=== PATIENT | female | born 1960 | race Caucasian/White ===

== ENCOUNTER → 2016-07-21 17:37 | Outpatient (CLI) | payer MEDICARE ==
[2012-02-24 09:55] VITALS: BMI 22.3
== END | disposition home or self-care (01) ==
LOC: D.MAMMO 16:15
DX: Z12.31 Encounter for screening mammogram for malignant neoplasm of breast (principal)

== ENCOUNTER 2017-06-26 07:57 | Inpatient (IN) | payer MEDICARE ==
[~2017-06-26] VITALS: Ht 165.1 cm; Wt 64.4 kg
[2017-06-26 08:31] LABS: BASOPHILS 0.1 % (0-2); EOSINOPHILS 0.4 % (0-7); HEMATOCRIT 36.4 % (36.0-48.0); HEMOGLOBIN 11.8 g/dL (12-16); LYMPHOCYTES 9.2 % (15-50); MCH 28.5 pg (26.0-34.0); MCHC 32.4 g/dL (31.0-37.0); MCV 87.9 fL (80.0-100.0); MEAN PLATELET VOLUME 9.9 fL (7.4-10.4); MONOCYTES 5.9 % (2-11); NEUTROPHILS 83.4 % (40-80); PLATELET COUNT 329 10x3/uL (130-400); RBC 4.14 10x6/uL (4.00-5.40); RDW 14.4 % (11.5-14.5); WBC 13.5 10x3/uL (4.8-10.8)
[2017-06-26 08:44] LABS: ALBUMIN 2.7 g/dL (3.4-5.0); ALKALINE PHOSPHATASE 73 U/L (46-116); ALT (SGPT) 40 U/L (10-68); BILIRUBIN - TOTAL 0.45 mg/dL (0.2-1.3); CALC OSMOLALITY 274 mosm/kg (275-300); CALCIUM 9.1 mg/dL (8.5-10.1); CARBON DIOXIDE 26.8 mmol/L (21.0-32.0); CHLORIDE - SERUM 100 mmol/L (98-107); CREATININE - SERUM 1.1 mg/dL (0.6-1.3); GLUCOSE 124 mg/dL (74-106); POTASSIUM - SERUM 3.5 mmol/L (3.5-5.1); SODIUM 137 mmol/L (136-145); UREA NITROGEN 13 mg/dL (7-18); eGFR NON AFRICAN AMERICAN 54 mL/min (90-120)
[2017-06-26 08:48] LABS: TROPONIN-I < 0.017 ng/mL (0.000-0.060)
[2017-06-26 15:40] VITALS: BP 128/62; BMI 21.0
[2017-06-26] MEDS ORDERED: ALENDRONATE SOD70 MG PO (15:40)
[2017-06-26 21:53] VITALS: BP 109/62
[2017-06-27 05:24] LABS: BASOPHILS 0.1 % (0-2); EOSINOPHILS 0 % (0-7); HEMATOCRIT 32.5 % (36.0-48.0); HEMOGLOBIN 10.6 g/dL (12-16); IMMATURE GRANULOCYTES 0.8 % (0-5); LYMPHOCYTES 7.6 % (15-50); MCH 28.2 pg (26.0-34.0); MCHC 32.6 g/dL (31.0-37.0); MCV 86.4 fL (80.0-100.0); MEAN PLATELET VOLUME 9.6 fL (7.4-10.4); MONOCYTES 1.6 % (2-11); NEUTROPHILS 89.9 % (40-80); PLATELET COUNT 343 10x3/uL (130-400); RBC 3.76 10x6/uL (4.00-5.40); RDW 14.4 % (11.5-14.5); WBC 13.5 10x3/uL (4.8-10.8)
[2017-06-27 05:40] VITALS: BP 115/68
[2017-06-27 05:47] LABS: ALBUMIN 2.1 g/dL (3.4-5.0); ALKALINE PHOSPHATASE 67 U/L (46-116); ALT (SGPT) 42 U/L (10-68); CALC OSMOLALITY 285 mosm/kg (275-300); CALCIUM 8.2 mg/dL (8.5-10.1); CARBON DIOXIDE 24.2 mmol/L (21.0-32.0); CHLORIDE - SERUM 106 mmol/L (98-107); GLUCOSE 167 mg/dL (74-106); POTASSIUM - SERUM 3.7 mmol/L (3.5-5.1); SODIUM 141 mmol/L (136-145); UREA NITROGEN 14 mg/dL (7-18); eGFR NON AFRICAN AMERICAN 78 mL/min (90-120)
[2017-06-27 05:54] LABS: CREATININE - SERUM 0.8 mg/dL (0.6-1.3)
[2017-06-27 08:57] VITALS: BP 115/64
[2017-06-27 09:50] LABS: APPEARANCE HAZY (CLEAR); BILIRUBIN NEGATIVE (NEGATIVE); COLOR YELLOW (YELLOW); GLUCOSE NEGATIVE (NEGATIVE); KETONE SMALL mg/dL (NEGATIVE); NITRITE NEGATIVE (NEGATIVE); PROTEIN 1+ mg/dL (NEGATIVE); SPECIFIC GRAVITY 1.025 (1.005-1.020); UROBILINOGEN NORMAL (NORMAL)
[2017-06-27 09:59] LABS: BACTERIA MANY /hpf (NONE SEEN); RED CELLS - URINE 0-5 /hpf (0-5)
[2017-06-27 10:00] LABS: GRANULAR CAST 0-5 /lpf (NONE SEEN); HYALINE CAST OCC /lpf (NONE SEEN); MUCUS <1+ /lpf (NONE SEEN)
[2017-06-27 10:35] VITALS: BMI 22.6
[2017-06-27 11:29] VITALS: Ht 165.1 cm; Wt 64.4 kg
[2017-06-27 11:42] VITALS: BP 105/55
[2017-06-27 15:53] VITALS: BP 131/68
[2017-06-27 20:26] VITALS: BP 143/76
[2017-06-28 05:02] LABS: BASOPHILS 0.1 % (0-2); EOSINOPHILS 0 % (0-7); HEMATOCRIT 30.5 % (36.0-48.0); HEMOGLOBIN 10.1 g/dL (12-16); LYMPHOCYTES 7.5 % (15-50); MCH 28.4 pg (26.0-34.0); MCHC 33.1 g/dL (31.0-37.0); MCV 85.7 fL (80.0-100.0); MEAN PLATELET VOLUME 9.5 fL (7.4-10.4); MONOCYTES 2.1 % (2-11); NEUTROPHILS 89.3 % (40-80); PLATELET COUNT 400 10x3/uL (130-400); RBC 3.56 10x6/uL (4.00-5.40); RDW 14.7 % (11.5-14.5); WBC 20.5 10x3/uL (4.8-10.8)
[2017-06-28 05:19] LABS: CALC OSMOLALITY 287 mosm/kg (275-300); CALCIUM 7.8 mg/dL (8.5-10.1); CARBON DIOXIDE 23.2 mmol/L (21.0-32.0); CHLORIDE - SERUM 109 mmol/L (98-107); CREATININE - SERUM 0.7 mg/dL (0.6-1.3); GLUCOSE 169 mg/dL (74-106); POTASSIUM - SERUM 4.1 mmol/L (3.5-5.1); SODIUM 142 mmol/L (136-145); UREA NITROGEN 16 mg/dL (7-18); eGFR NON AFRICAN AMERICAN > 90 mL/min (90-120)
[2017-06-28 06:23] VITALS: BP 128/66
[2017-06-28 07:00] VITALS: BP 128/72
[2017-06-28 20:00] VITALS: BP 119/59
[2017-06-29 06:02] LABS: BASOPHILS 0.1 % (0-2); EOSINOPHILS 0 % (0-7); HEMOGLOBIN 10.3 g/dL (12-16); IMMATURE GRANULOCYTES 1.1 % (0-5); LYMPHOCYTES 7.7 % (15-50); MCH 27.8 pg (26.0-34.0); MCHC 32.2 g/dL (31.0-37.0); MCV 86.5 fL (80.0-100.0); MEAN PLATELET VOLUME 9.7 fL (7.4-10.4); MONOCYTES 2.5 % (2-11); NEUTROPHILS 88.6 % (40-80); PLATELET COUNT 462 10x3/uL (130-400); RDW 15.1 % (11.5-14.5); WBC 15.8 10x3/uL (4.8-10.8)
[2017-06-29 06:03] LABS: CALC OSMOLALITY 289 mosm/kg (275-300); CALCIUM 7.5 mg/dL (8.5-10.1); CARBON DIOXIDE 23.4 mmol/L (21.0-32.0); CHLORIDE - SERUM 109 mmol/L (98-107); CREATININE - SERUM 0.8 mg/dL (0.6-1.3); GLUCOSE 153 mg/dL (74-106); POTASSIUM - SERUM 3.8 mmol/L (3.5-5.1); SODIUM 143 mmol/L (136-145); UREA NITROGEN 17 mg/dL (7-18); eGFR NON AFRICAN AMERICAN 78 mL/min (90-120)
[2017-06-29 08:57] VITALS: BP 125/63
[2017-06-29] MEDS ORDERED: FLORAJEN3 CAPS460 MG PO (11:53)
[2017-06-29] MEDS ORDERED: LEVAQUIN750 MG PO (11:53)
[2017-06-29] MEDS ORDERED: PREDNISONE10 MG PO (11:54)
== END 2017-06-29 14:29 | disposition home or self-care (01) | DRG 193 ==
LOC: D.ER 07:57 → D.M2 13:37
PROVIDERS: Family Medicine; Internal Medicine Nephrology
DX: J18.9 Pneumonia, unspecified organism (principal); J96.01 Acute respiratory failure with hypoxia; R91.1 Solitary pulmonary nodule; D64.9 Anemia, unspecified; R19.7 Diarrhea, unspecified

== ENCOUNTER 2019-03-22 08:00 | Outpatient (CLI) | payer MEDICARE ==
[2017-06-27 11:29] VITALS: BMI 22.6
[~2019-03-22 08:00] MED LIST: ALENDRONATE SOD70 MG PO; FLORAJEN3 CAPS460 MG PO; LEVAQUIN750 MG PO; PREDNISONE10 MG PO
== END 2019-03-22 23:59 | disposition home or self-care (01) ==
LOC: D.MAMMO 08:00
PROVIDERS: ATTEND Nurse Practitioner Family
DX: Z12.31 Encounter for screening mammogram for malignant neoplasm of breast (principal)

== ENCOUNTER → 2019-04-26 13:30 | Outpatient (CLI) | payer BC ==
[2017-06-27 11:29] VITALS: BMI 22.6
== END | disposition home or self-care (01) ==
LOC: D.MAMMO 08:30
PROVIDERS: ATTEND Nurse Practitioner Family
DX: R92.8 Other abnormal and inconclusive findings on diagnostic imaging of breast (principal)